=== PATIENT | male | born 1980 | race Caucasian/White ===

== ENCOUNTER 2018-06-14 19:51 | Emergency (ER) | payer OTHER, SELFPAY ==
[2018-06-14 19:58] VITALS: BP 160/100; PULSE 79; RESP 18; TEMP 37; O2SAT 93; BMI 37.7
--- NOTE | 2018-06-14 21:11 | PC.NURSE ---
Pt states that he has jaw numbness [id number] today. Pt states that shortly before sx started pt had some Passion oil from a friend. Pt states that it is a herbal drop
--- NOTE | 2018-06-15 05:38 | ED_ITS ---
HPI - Extremity Problem General Chief complaint: Extremity Problem,Nontraumatic Stated complaint: numbness in jaw,numbness right leg Time Seen by Provider: 06/14/18 21:40 Source: patient and family Mode of arrival: ambulatory Limitations: no limitations History of Present Illness HPI Narrative: 37-year-old male nonsmoker presents to the emergency department after initial evaluation at the walk-in clinic. Earlier today the patient was in his normal state of health until he drank patch in Flower concentrate given to him by a friend. He states she gave him half the normal dose but soon after consumption he noticed some tingling and numbness along the lower edge of his jaw bilaterally and his lower lip centrally. He denies any blurred vision or trouble with speech. he denies any weakness of his extremities. he does state that he had some tingling on his right ankle as well but as soon as he removed his compression sock the sensation came back immediately. He states his symptoms started at about noon Related Data Previous Rx's Medication Instructions Recorded amoxicillin 875 mg PO BID #20 tab 05/08/17 Allergies Allergy/AdvReac Type Severity Reaction Status Date / Time No Known Drug Allergies Allergy Verified 06/14/18 20:04 Review of Systems Constitutional Denies chills, Denies fever(s), Denies lethargy and Denies weakness Eyes Denies change in vision, Denies eye discharge, Denies irritation and Denies loss of vision ENT Ears, Nose, Mouth, and Throat: Denies change in voice, Denies neck pain and Denies sore throat Cardiovascular Denies chest pain, Denies irregular heart rhythm, Denies lightheadedness, Denies palpitations, Denies dyspnea, Denies dyspnea on exertion and Denies orthopnea Respiratory Denies cough, Denies dyspnea, Denies dyspnea on exertion and Denies wheezing Gastrointestinal Gastrointestinal: Denies abdominal pain, Denies change in bowel habits, Denies diarrhea, Denies nausea and Denies vomiting Genitourinary Denies hematuria, Denies flank pain, Denies urinary incontinence and Denies urinary urgency Musculoskeletal Denies neck pain Integumentary/Breasts Denies pruritus, Denies erythema, Denies rash and Denies wounds Neurologic Denies confusion, Denies loss of vision, Reports sensory deficit and Denies weakness Psychiatric Denies anxiety, Denies confusion, Denies depression, Denies homicidal ideation and Denies suicidal ideation Endocrine Denies palpitations Hematologic/Lymphatic Denies easy bruising Allergic/Immunologic Denies wheezing PFSH Social History Smoking Status: Never smoker Social History Smoking Status: Never smoker Exam Narrative Exam Narrative: GENERAL: This is a well-nourished, well-developed patient, in mild distress. HEAD: Atraumatic. Normocephalic. No temporal or scalp tenderness. EYES: Pupils equal round and reactive. Extraocular motions intact. No scleral icterus. No injection or drainage. ENT: Nose without bleeding, purulent drainage or septal hematoma. Throat without erythema, tonsillar hypertrophy or exudate. Uvula midline. Airway patent. NECK: Trachea midline. No JVD or lymphadenopathy. Supple, nontender, no meningeal signs. CARDIOVASCULAR: Regular rate and rhythm without murmurs, gallops, or rubs. RESPIRATORY: Clear to auscultation. Breath sounds equal bilaterally. No wheezes, rales, or rhonchi. GASTROINTESTINAL: Abdomen soft, non-tender, nondistended. No hepato- splenomegaly, or palpable masses. No guarding. EXTREMITIES: No clubbing, cyanosis, or edema. No joint tenderness, effusion, or edema noted. BACK: Nontender without deformity or crepitance. No flank tenderness. NEURO: AOx3. SKIN: No rash or erythema. Initial Vital Signs Initial Vital Signs: Vital Signs Temperature 98.6 F 06/14/18 19:58 Pulse Rate 79 06/14/18 19:58 Respiratory Rate 18 06/14/18 19:58 Blood Pressure 160/100 H 06/14/18 19:58 Pulse Oximetry 93 06/14/18 19:58 Scores NIH Stroke Scale Level of Conciousness: Alert, keenly responsive Ask month/age: Answers both questions correctly. Open/close eyes, close hand: Performs both tasks correctly Best gaze horizontal: Normal Visual magallon: No visual loss Facial palsy: Normal symetrical movement Left arm drift: No drift for full 10 sec Right arm drift: No drift for full 10 sec Left leg drift: No drift for full 10 sec Right leg drift: No drift for full 10 sec Limb ataxia: Absent Sensory on face/arms/legs: Mild to moderate sensory loss, can tell touch Best language: No aphasia, normal Dysarthria: Normal Extinction or inattention: No abnormality Total NIH Stroke scale score: 1 MDM - Extremity (Nontraumatic) MDM Narrative Medical decision making narrative: Extensive discussion at the bedside with this patient about how to proceed. He was sent here for evaluation of stroke but other than limited bilateral facial tingling has no signs or symptoms. though the etiology of his facial numbness is unclear it is temporal relationship to the patch in Flower drink cannot be ignored. Furthermore given the limited distribution which happens to be bilateral and lack of other physical exam findings it is highly unlikely that this is stroke. Discharge Plan Departure Patient Disposition: Home Clinical Impression: Paresthesia Discharge Date/Time: 06/14/18 22:10 Instructions: DI for Numbness/tingling Activity Restrictions/Additional Instructions: *You have been diagnosed with [improving facial paresthesia ] *What to do: * continue to take medications as directed *Follow up with your primary care provider in 2-3 days, call for an appointment. Let them know you were seen in the Emergency Department and that we ask that you be seen in follow up *Return to ER if you should have any new, worsening or concerning symptoms, such Prescriptions: No Action amoxicillin 875 MG tablet 875 mg PO BID Qty: 20 RF: 0 Referrals: Trip Dumont MD [Non-Staff] -
== END 2018-06-14 22:10 | disposition home or self-care (01) ==
PROVIDERS: Emergency Provider Emergency Medicine
DX: R20.2 Paresthesia of skin (principal)
CPT/HCPCS: 93005; 93010; 99282; 99291

== ENCOUNTER → 2018-12-19 17:21 | Outpatient (CLI) | payer OTHER, SELFPAY | PROVIDERS: Visit Provider Physician Assistant | DX: L02.91 Cutaneous abscess, unspecified (principal) | CPT/HCPCS: 87070; 87075; 87205 ==